=== PATIENT | female | born 1990 | race Caucasian/White ===

== ENCOUNTER 2017-03-22 13:49 | Inpatient (IN) | payer OTHER ==
[2017-03-22] MEDS: NS 1,000 ML IV ×4 (01:00→18:38)
[2017-03-22 14:09] LABS: BASO % 0.3 % (0.0-1.0); EOS # 0.2 10^3/uL (0.0-0.50); HEMATOCRIT 40.5 % (36.0-47.0); HEMOGLOBIN 13.8 g/dl (12.0-16.0); IMMATURE GRANULOCYTE # 0.1 10^3/uL (0-0); IMMATURE GRANULOCYTE % 0.8 % (0-0); LYMPH # 2.8 10^3/uL (1.5-6.5); LYMPH % 18.1 % (24.0-44.0); MEAN CORPUSCULAR HEMOGLOBIN 32.2 pg (27.0-33.0); MEAN CORPUSCULAR HGB CONC 34.1 g/dl (32.0-36.5); MEAN CORPUSCULAR VOLUME 94.6 fl (80.0-96.0); MONO # 0.9 10^3/uL (0.0-0.8); MONO % 5.5 % (0.0-5.0); NEUTROPHILS # 11.5 10^3/uL (1.8-7.7); NEUTROPHILS % 74.3 % (36.0-66.0); PLATELET COUNT, AUTOMATED 423 10^3/uL (150-450); RED BLOOD COUNT 4.28 10^6/uL (4.00-5.40); RED CELL DISTRIBUTION WIDTH 13.8 % (11.5-14.5); WHITE BLOOD COUNT 15.5 10^3/uL (4.0-10.0)
[2017-03-22 14:23] LABS: OSMOLALITY SERUM 290 MOSM/KG (275-295)
[2017-03-22 14:27] LABS: ALBUMIN 3.3 GM/DL (3.2-5.2); ALBUMIN/GLOBULIN RATIO 0.72 (1.00-1.93); ALKALINE PHOSPHATASE 148 U/L (45-117); ALT/SGPT 11 U/L (12-78); ANION GAP 10 MEQ/L (8-16); AST/SGOT 12 U/L (7-37); BILIRUBIN,DIRECT < 0.1 MG/DL (0.0-0.2); BILIRUBIN,TOTAL 0.4 MG/DL (0.2-1.0); BLOOD UREA NITROGEN 6 MG/DL (7-18); CALCIUM LEVEL 9.1 MG/DL (8.5-10.1); CARBON DIOXIDE LEVEL 24 MEQ/L (21-32); CHLORIDE LEVEL 106 MEQ/L (98-107); CPK CREATINE PHOSPHOKINASE 58 U/L (26-192); CREATININE FOR GFR 0.45 MG/DL (0.55-1.02); ETHYL ALCOHOL (ETHANOL) 0.009 % (0.000-0.010); GLOMERULAR FILTRATION RATE > 60.0 (>60); GLUCOSE, FASTING 85 MG/DL (70-105); POTASSIUM SERUM 3.8 MEQ/L (3.5-5.1); SALICYLATE LEVEL 2.2 MG/DL (5.0-30.0); SODIUM LEVEL 140 MEQ/L (136-145); TOTAL PROTEIN 7.9 GM/DL (6.4-8.2)
[2017-03-22 14:30] LABS: VENOUS HCO3 21.5 MEQ/L (23.0-27.0); VENOUS O2 SATURATION 59.3 % (60.0-80.0); VENOUS PARTIAL PRESSURE CO2 40.8 mmHg (38.0-50.0); VENOUS PARTIAL PRESSURE O2 31.6 mmHg (30.0-50.0); VENOUS STANDARD HCO3 20.4 MEQ/L; VENOUS TOTAL CO2 22.8 MEQ/L (24.0-28.0)
[2017-03-22 14:30] LABS: BEDSIDE GLUCOSE 88 MG/DL (70-105)
[2017-03-22 14:42] LABS: AMPHETAMINES LEVEL URINE POSITIVE (NEGATIVE); BARBITURATES URINE NEGATIVE (NEGATIVE); BENZODIAZEPINES URINE NEGATIVE (NEGATIVE); CANNABINOIDS URINE NEGATIVE (NEGATIVE); COCAINE METABOLITE URINE NEGATIVE (NEGATIVE); METHADONE URINE NEGATIVE (NEGATIVE); OPIATES URINE NEGATIVE (NEGATIVE); PHENCYCLIDINE URINE NEGATIVE (NEGATIVE)
[2017-03-22] MEDS ORDERED: ONDANSETRON 4MG/2ML VIAL (J2405) As Ordered (14:51)
[2017-03-22 14:54] LABS: LACTIC ACID SEPSIS PROTOCOL 1.4 MMOL/L (0.4-2.0)
[2017-03-22] MEDS: ONDANSETRON 4MG/2ML VIAL (J2405) IV (15:00)
[2017-03-22 15:20] LABS: ACETAMINOPHEN LEVEL < 2.0 UG/ML (10.0-30.0)
[2017-03-22] MEDS: SODIUM CHLORIDE 0.9% 1000 ML IV (21:53)
[2017-03-22] MEDS ORDERED: ONDANSETRON 4MG/2ML VIAL (J2405) IV (22:00)
[2017-03-23] MEDS: NS 1,000 ML IV (05:53)
== END 2017-03-23 14:44 | DRG 812 ==
LOC: M PSY 03-23 14:39 → M ED 13:49 → M OBS 03-23 14:39 → M ED INP 21:53 → M OBS 22:55
DX: T43.292A Poisoning by other antidepressants, intentional self-harm, initial encounter (principal); Z3A.27 27 weeks gestation of pregnancy; R19.7 Diarrhea, unspecified